=== PATIENT | male | born 2000 | race Caucasian/White ===

== ENCOUNTER → 2023-05-04 14:29 | Outpatient (REF) | payer OTHER, SELFPAY | LOC: RAD 14:29 | PROVIDERS: ATTENDING PHYSICIAN Internal Medicine Gastroenterology; FAMILY PHYSICIAN Family Medicine | DX: R79.9 Abnormal finding of blood chemistry, unspecified (principal) | CPT/HCPCS: 71046 ==

== ENCOUNTER → 2023-05-12 08:54 | Outpatient (REF) | payer OTHER, SELFPAY ==
[2023-05-17 11:16] LABS: Quantiferon Mitogen minus NIL 8.98 IU/mL; Quantiferon NIL 2.05 IU/mL; Quantiferon TB Gold Plus Negative (Negative)
== END ==
LOC: REG 08:54
PROVIDERS: ATTENDING PHYSICIAN Internal Medicine Infectious Disease; FAMILY PHYSICIAN Family Medicine
DX: Z11.1 Encounter for screening for respiratory tuberculosis (principal)
CPT/HCPCS: 36415; 86480

== ENCOUNTER → 2023-06-09 06:34 | Day surgery (SDC) | payer OTHER, SELFPAY | LOC: GI 06:34 | PROVIDERS: ATTENDING PHYSICIAN Internal Medicine Gastroenterology | DX: Z12.11 Encounter for screening for malignant neoplasm of colon (principal); K50.10 Crohn's disease of large intestine without complications; K63.3 Ulcer of intestine; K63.89 Other specified diseases of intestine | CPT/HCPCS: 45380; 88305 ==

== ENCOUNTER → 2023-06-16 08:54 | Outpatient (REF) | payer OTHER, SELFPAY ==
[2023-06-19 01:50] LABS: Quantiferon Plus TB2 minus NIL 0.58 IU/mL (0.00-0.34); Quantiferon TB Gold Plus Positive (Negative)
== END ==
LOC: REG 08:54
PROVIDERS: ATTENDING PHYSICIAN Internal Medicine Infectious Disease; FAMILY PHYSICIAN Family Medicine
DX: Z11.1 Encounter for screening for respiratory tuberculosis (principal)
CPT/HCPCS: 36415; 86480